=== PATIENT | female | born 1975 | race Two or more races ===

== ENCOUNTER → 2024-04-14 | Outpatient (CLI) | payer MEDICAID, SELFPAY ==
--- NOTE | 2024-04-14 | XR_ITS ---
Examination: Diagnostic digital mammography, bilateral Computer aided detection 3-D breast Tomosynthesis, bilateral Date and time of exam: April 14, 2024 at 1141 hours Compared to mammograms dating to September 18, 2017 INDICATIONS: Patient states left breast pain one year Technique: Nonmagnified MLO, CC views of the breasts to been obtained, reconstructed from 3-D Tomosynthesis images. R2 computer aided detection program utilized for evaluation of suspicious masses and/or abnormal calcifications. 3-D Tomosynthesis images obtained. Findings: Scattered areas of fibroglandular density Stable focal asymmetries outer upper right breast No interval suspicious masses Impression: BI-RADS Category 2: Benign findings Recommend yearly follow-up mammography Please see the breast sonography report today indicating 6 month left breast sonogram follow-up needed to confirm stability of 3:00 oval mass versus glandular tissue 9 x 7 mm.
--- NOTE | 2024-04-14 11:00 | XR_ITS ---
Examination: Breast ultrasound, unilateral, left complete Date and time of exam: April 14, 1999 2519 hours INDICATIONS: Patient states left breast pain beginning 2 months ago Technique: Real-time bah scale ultrasonographic imaging performed left breast including all 4 quadrants as well as nipple retroareolar and axillary region. Findings: 12:00 cyst 2 x 2 mm 3:00 oval mass versus glandular tissue 9 x 7 mm IMPRESSION: BI-RADS Category 0 clinical pain: Need additional imaging evaluation Recommend diagnostic mammography follow-up Recommend repeat left breast sonography follow-up in 6 months
== END | disposition home or self-care (01) ==
LOC: CDIM 10:42
PROVIDERS: Referring Provider Nurse Practitioner Family; Visit Provider Nurse Practitioner Family
DX: R92.323 Mammographic fibroglandular density, bilateral breasts (principal); N63.25 Unspecified lump in the left breast, overlapping quadrants
CPT/HCPCS: 76641; 77062; 77066; G0279

== ENCOUNTER → 2024-08-18 | Outpatient (CLI) | payer MEDICAID, SELFPAY ==
--- NOTE | 2024-08-18 10:00 | XR_ITS ---
Examination: Breast ultrasound, unilateral, left Date and time of exam: August 18, 2024 1219 hours INDICATIONS: Left breast pain one year, 3:00 nodule versus glandular tissue 9 mm on left breast sonogram April 14, 2024 Technique: Real-time bah scale ultrasonographic imaging performed left breast including all 4 quadrants as well as nipple retroareolar and axillary region. Findings: 12:00 cyst 7 x 8 mm No solid nodules IMPRESSION: BI-RADS Category 2: Benign findings
== END | disposition home or self-care (01) ==
PROVIDERS: PCP Nurse Practitioner Family; Referring Provider Nurse Practitioner Family; Visit Provider Nurse Practitioner Family
DX: N60.02 Solitary cyst of left breast (principal)
CPT/HCPCS: 76641